=== PATIENT | female | born 1945 | race Caucasian/White ===

== ENCOUNTER → 2019-09-21 13:14 | Outpatient (BNVA) | payer MEDICARE, OTHER, SELFPAY | PROVIDERS: PCP Nurse Practitioner Family; Visit Provider Nurse Practitioner Family | DX: E55.9 Vitamin D deficiency, unspecified (principal); I10 Essential (primary) hypertension; L03.116 Cellulitis of left lower limb; L03.115 Cellulitis of right lower limb; E78.00 Pure hypercholesterolemia, unspecified; F32.9 Major depressive disorder, single episode, unspecified; J43.2 Centrilobular emphysema; F41.9 Anxiety disorder, unspecified; L25.9 Unspecified contact dermatitis, unspecified cause; Z99.81 Dependence on supplemental oxygen; Z86.19 Personal history of other infectious and parasitic diseases | CPT/HCPCS: 80053; 80061; 82306; 84443; 85025 ==

== ENCOUNTER → 2020-09-13 14:58 | Outpatient (BNVA) | payer MEDICARE, OTHER, SELFPAY | PROVIDERS: PCP Nurse Practitioner Family; Visit Provider Nurse Practitioner Family | DX: I10 Essential (primary) hypertension (principal); J43.2 Centrilobular emphysema; E78.00 Pure hypercholesterolemia, unspecified; F32.9 Major depressive disorder, single episode, unspecified | CPT/HCPCS: 80053; 80061; 84443; 85025 ==

== ENCOUNTER → 2021-03-01 16:35 | Outpatient (BNVA) | payer MEDICARE, OTHER, SELFPAY | PROVIDERS: PCP Nurse Practitioner Family; Visit Provider Nurse Practitioner Family | DX: R05.9 Cough, unspecified (principal); R06.02 Shortness of breath; J43.9 Emphysema, unspecified; J40 Bronchitis, not specified as acute or chronic | CPT/HCPCS: 71046; 80053 ==

== ENCOUNTER → 2021-03-05 13:29 | Outpatient (BNVA) | payer MEDICARE, OTHER, SELFPAY | PROVIDERS: PCP Nurse Practitioner Family; Visit Provider Nurse Practitioner Family | DX: R05.9 Cough, unspecified (principal); J84.115 Respiratory bronchiolitis interstitial lung disease; R06.02 Shortness of breath | CPT/HCPCS: 71046 ==

== ENCOUNTER → 2021-03-06 13:29 | Outpatient (BNVA) | payer MEDICARE, OTHER, SELFPAY | PROVIDERS: PCP Nurse Practitioner Family; Visit Provider Nurse Practitioner Family | DX: Z11.52 Encounter for screening for COVID-19 (principal) | CPT/HCPCS: 87635 ==

== ENCOUNTER 2021-03-19 13:55 | Inpatient (IN) | payer MEDICARE, OTHER, SELFPAY ==
[2021-03-19 14:04] VITALS: BP 134/55; PULSE 90; RESP 19; TEMP 37; O2SAT 98; BMI 22.3
[2021-03-19 14:07] VITALS: BP 150/83; PULSE 99; RESP 18; TEMP 36.8; O2SAT 95
--- NOTE | 2021-03-19 14:18 | XRR_ITS ---
PROCEDURE INFORMATION: Exam: XR Chest Exam date and time: 03/19/2021 2:18 PM Age: 76 years old Clinical indication: Dyspnea TECHNIQUE: Imaging protocol: XR of the chest. Views: 1 view. COMPARISON: CR XR chest 2V* [id number] 03/05/2021 1:36 PM FINDINGS: Lungs: Ill-defined opacity in the right lung base. Hyperinflated lungs with diffuse coarsening of the lung parenchyma. Biapical scarring noted. Pleural spaces: Unremarkable. No pleural effusion. No pneumothorax. Heart/Mediastinum: Unremarkable. No cardiomegaly. Bones/joints: Unremarkable. XR/XR chest 1V portable [id number] IMPRESSION: Sequela of COPD. Ill-defined opacity in the right lung base suspicious for pneumonia.
--- NOTE | 2021-03-19 14:18 | CTR_ITS ---
PROCEDURE INFORMATION: Exam: CTA Chest With Contrast Exam date and time: 03/19/2021 2:18 PM Age: 76 years old Clinical indication: Shortness of breath; Additional info: Pe? TECHNIQUE: Imaging protocol: Computed tomographic angiography of the chest with contrast. 3D rendering (Not supervised by radiologist): MIP and/or 3D reconstructed images were created by the technologist. Total images: [id number] Radiation optimization: All CT scans at this facility use at least one of these dose optimization techniques: automated exposure control; mA and/or kV adjustment per patient size (includes targeted exams where dose is matched to clinical indication); or iterative reconstruction. Contrast material: OMNI 350; Contrast volume: 95 ml; Contrast route: INTRAVENOUS (IV); COMPARISON: CT chest w con* [id number] 08/15/2015 2:00 PM RADIATION DOSE METRICS: Total DLP (mGy-cm): 432.82 FINDINGS: Pulmonary arteries: No visible evidence of pulmonary embolism/pulmonary arterial thrombus. Aorta: The thoracic aorta is nonaneurysmal. No visible intimal flap or dissection. Moderately advanced arterial sclerotic disease. 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 Lungs: Advanced centrilobular and panlobular emphysema. Subsegmental mixed interstitial and consolidated alveolar airspace disease anterior segment right upper lobe consistent with right upper lobe pneumonitis/pneumonia. Pleural spaces: No pneumothorax. No pleural effusion. Heart: No cardiomegaly. Left ventricular prominence. No visible pericardial effusion. Advanced 3 vessel coronary artery disease. Lymph nodes: Few marginally prominent middle mediastinal and right hilar lymph nodes most likely reactive in nature. Few calcified complexes of antecedent granulomatous disease. Diaphragm: Large hiatal hernia. Bones/joints: No visible acute osseous abnormality. Age-appropriate degenerative disease of the spine. Soft tissues: Unremarkable. Other findings: Respiratory motion artifact. CT/CT angio chest PE protcl [id number] IMPRESSION: 1. No visible evidence of pulmonary embolism/pulmonary arterial thrombus. For age 2. Subsegmental mixed interstitial and consolidated alveolar airspace disease anterior segment right upper lobe consistent with right upper lobe pneumonitis/pneumonia. 3. Advanced centrilobular and panlobular emphysema. 4. Advanced 3 vessel coronary artery disease. 5. Few marginally prominent middle mediastinal and right hilar lymph nodes most likely reactive in nature. 6. 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
--- NOTE | 2021-03-19 14:19 | ECG_ITS ---
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 Measurements Intervals [place] Rate: 87 P: 67 AR: 176 QRS: 42 QRSD: 62 T: 67 QT: 259 QTc: 312 Interpretive Statements SINUS RHYTHM NONSPECIFIC ST & T-WAVE ABNORMALITY Compared to ECG 08/28/2014 13:40:29 Sinus tachycardia no longer present T-wave abnormality still present Electronically Signed On 03-19-2021 20:53:38 SR. MERCHANDISE PLANNER by Roopa Mcclain M.D. [id number]
--- NOTE | 2021-03-19 14:55 | W.ED.GENADLT ---
HPI - General Adult General: Chief complaint: Shortness of Breath/Dyspnea Stated complaint: SEPSIS PNEUMONIA X 3 WEEKS Time Seen by Provider: 03/19/21 14:17 History of Present Illness: HPI narrative: Patient is a 76-year-old female with a history of COPD on 3L of oxygen at home, allergies to emergency room with complaints of cough and shortness of breath x3 weeks now with fever x1 day. Patient tells me that for the last week she has been dealing with pneumonia. Patient went to see her primary care provider on 2 occasion was prescribed cefdinir and then levofloxacin. Patient tells me that she finished levofloxacin 5 days ago and has had symptom improvement up until 2 days when she became short of breath and resumed coughing. Today, patient had a low-grade fever 99.5. Patient had 1 negative covid test from PCP office. Has any active chest pain, lightheadedness, abdominal complaints, nausea/vomiting, back pain, short pain, or any complaints or new vaginal complaints. Patient denies any increased oxygen requirement. Denies any leg swelling, pleuritic chest pain or hx of VTEs in the past. Onset: 3 weeks ago chronically, acutely 2 days Duration:ongoing Location:home Severity:moderate Review of Systems Narrative: Constitutional: +fever, +chills. HEENT: No vision changes CV: No chest pain, no palpitations PULM: +cough, +dyspnea. GI: No abdominal pain, no N/V/D. : No dysuria MSKEL: No muscle pain SKIN: No new rashes, no lesions. NEURO: No headache, no focal weakness. HEME: No visible bruises PSYCH: Normal mood PFSH ED PFSH: Medical History (Updated 03/19/21 @ 15:47 by Prabhjot Zuniga MD) Age related osteoporosis Anemia Anxiety Arteriosclerotic heart disease (ASHD) Bruit of right carotid artery Centrilobular emphysema SpO2 96% at rest on room air, drops to 84% with activity, 93% on 2L Compression of trachea Depression Essential (primary) hypertension Hypercholesterolemia Lung nodule, multiple On home oxygen therapy PAD (peripheral artery disease) Unspecified hearing loss, unspecified ear Vitamin D deficiency Surgical History History of bilateral carpal tunnel release Hx of appendectomy Hx of cholecystectomy Hx of spinal fusion Family History Father , AGE 39 Family history of premature coronary artery disease Myocardial infarction Other CAD (coronary artery disease) Social History Smoking and tobacco status: never smoked Quit status (tobacco): has quit using tobacco Year quit tobacco: 2010 Former quit date comment: PPD since age 14 Second hand smoke exposure: No Alcohol intake: current Alcohol intake frequency: 0-2 Drinks per Day Lives independently: Yes Household members: none Marital status: / Current occupational status: retired History of recent travel: No Current gender identity: Female Physical Exam Narrative: EXAM NARRATIVE: Head: Atraumatic Eyes: PERRL, conjunctiva without injection ENT: Mucous membrane moist NECK: Supple, ROM intact LUNGS: LCTAB, no crackles/rhonchi CV: RRR ABDOMEN: Soft, nontender in all quadrants EXTREMITY: Normal ROM SKIN: No rash or erythema NEURO: Awake and alert, no focal motor deficits PSYCH: Normal mood and affect Course Vital Signs: Vital signs: Vital Signs Temperature 98.6 F 03/19/21 14:04 Pulse Rate 90 03/19/21 14:04 Respiratory Rate 19 H 03/19/21 14:04 Blood Pressure 134/55 03/19/21 14:04 Pulse Oximetry 98 03/19/21 14:04 MDM - General Adult MDM Narrative: Medical decision making narrative: 76-year-old female with history of COPD, chronic allergies presenting to emergency room with cough, dyspnea, and fever x1 day. Patient is hemodynamically stable satting at 95% on 3 L of oxygen. Patient is noted to have coarse breath sounds in the right lung. X-ray chest showed right lower lobe dilatation concerning for possible pneumonia. Given the fact the patient has failed multiple outpatient treatments, patient was made to admit patient for IV antibiotics. Patient has a white count 15.7, pro-Randy elevated. Will be admitted for pneumonia. S/p vancomycin and cefepime. Disposition: Admission Lab Data: Labs: Lab Results 03/19/21 03/19/21 03/19/21 14:50 14:50 14:50 WBC 15.7 10^3/uL H 10 ^3/uL (4.0-10.0) RBC 4.29 10^6/uL 10^6 /uL (4.1-5.3) Hgb 11.5 g/dL g/dL (11.5-15.3) Hct 35.6 % L % (37.0-47.0) MCV 83.0 fl fl (81-99) MCH 26.8 pg L pg (28.0-34.0) MCHC 32.3 g/dL g/dL (30.0-36.0) RDW 15.0 % % (12.1-15.1) Plt Count 177 10^3/cmm 10^3 /cmm (130-400) MPV 9.7 fL fL (7.4-10.4) Neut % (Auto) 91.4 % % Lymph % (Auto) 2.4 % % Rich % (Auto) 4.7 % % Eos % (Auto) 0.6 % % Baso % (Auto) 0.3 % % Neut # (Auto) 14.36 10^3/uL H 1 0^3/uL (1.8-7.7) Lymph # (Auto) 0.4 10^3/uL L 10^ 3/uL (0.8-4.8) Rich # (Auto) 0.7 10^3/uL 10^3/ uL (0.2-0.9) Eos # (Auto) 0.1 10^3/uL 10^3/ uL (0.0-0.8) Baso # (Auto) 0.1 10^3/uL 10^3/ uL (0.0-0.1) Nucleated RBC % (a uto) 0 % % Nucleated RBCs # 0.0 /100WBC /100W BC Sodium 136 mmol/L mmol/L (136-145) Potassium 3.3 mmol/L L mmol /L (3.5-5.1) Chloride 101 mmol/L mmol/L (98-107) Carbon Dioxide 23 mmol/L mmol/L (22-29) Anion Gap 15.3 (5-19) BUN 13 mg/dL mg/dL (8-23) Creatinine 0.7 mg/dL mg/dL (0.5-0.9) GFR Calculation Not Reportable Glucose 105 mg/dL mg/dL (65-115) Calculated Osmolal ity 282 mOsm/kg L mOs m/kg (285-295) Calcium 8.1 mg/dL L mg/dL (8.5-10.5) Troponin T Baselin e 10 ng/L ng/L (0-10) C-Reactive Protein 17.0 mg/L H mg/L (0.0-4.9) NT-Pro-B Natriuret Pep 275 pg/mL pg/mL (0-450) Procalcitonin 1.51 ng/mL H ng/m L (0-0.5) Imaging Data^: Other Imaging: Radiologist's impression: [facility], [place] [address]TEfu ReportSigned Patient: Sangeeta Graham #: [id number]: 1945cct#:[id number]/Sex: 76 / FADM Date: 03/19/21Loc: ERRoom/Bed:Attending Dr: Ordering Provider/Ordering MD: Prabhjot Zuniga MD Date of Service: 03/19/21 Procedure(s): XR chest 1V portable [id number] Accession Number(s): [id number] Report Number: [id number] PROCEDURE INFORMATION: Exam: XR Chest Exam date and time: 03/19/2021 2:18 PM Age: 76 years old Clinical indication: Dyspnea TECHNIQUE: Imaging protocol: XR of the chest. Views: 1 view. COMPARISON: CR XR chest 2V* [id number] 03/05/2021 1:36 PM FINDINGS: Lungs: Ill-defined opacity in the right lung base. Hyperinflated lungs with diffuse coarsening of the lung parenchyma. Biapical scarring noted. Pleural spaces: Unremarkable. No pleural effusion. No pneumothorax. Heart/Mediastinum: Unremarkable. No cardiomegaly. Bones/joints: Unremarkable. XR/XR chest 1V portable [id number] IMPRESSION: Sequela of COPD. Ill-defined opacity in the right lung base suspicious for pneumonia. Dictated By:Eduardo Vargas DOSigned By:Eduardo Vargas DOSigned Date/Time:03/19/21 1522DD/ 1418 [facility] [place], [place] [address]RQ Scan ReportSigned Patient: Sangeeta Graham #: [id number]: 1945cct#:[id number]/Sex: 76 / FADM Date: 03/19/21Loc: ERRoom/Bed:Attending Dr: Ordering Provider/Ordering MD: Prabhjot Zuniga MD Date of Service: 03/19/21 Procedure(s): CT angio chest PE protcl [id number] Accession Number(s): [id number] Report Number: [id number] PROCEDURE INFORMATION: Exam: CTA Chest With Contrast Exam date and time: 03/19/2021 2:18 PM Age: 76 years old Clinical indication: Shortness of breath; Additional info: Pe? TECHNIQUE: Imaging protocol: Computed tomographic angiography of the chest with contrast. 3D rendering (Not supervised by radiologist): MIP and/or 3D reconstructed images were created by the technologist. Total images: 799 Radiation optimization: All CT scans at this facility use at least one of these dose optimization techniques: automated exposure control; mA and/or kV adjustment per patient size (includes targeted exams where dose is matched to clinical indication); or iterative reconstruction. Contrast material: OMNI 350; Contrast volume: 95 ml; Contrast route: INTRAVENOUS (IV); COMPARISON: CT chest w con* [id number] 08/15/2015 2:00 PM RADIATION DOSE METRICS: Total DLP (mGy-cm): 432.82 FINDINGS: Pulmonary arteries: No visible evidence of pulmonary embolism/pulmonary arterial thrombus. Aorta: The thoracic aorta is nonaneurysmal. No visible intimal flap or dissection. Moderately advanced arterial sclerotic disease. 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 Lungs: Advanced centrilobular and panlobular emphysema. Subsegmental mixed interstitial and consolidated alveolar airspace disease anterior segment right upper lobe consistent with right upper lobe pneumonitis/pneumonia. Pleural spaces: No pneumothorax. No pleural effusion. Heart: No cardiomegaly. Left ventricular prominence. No visible pericardial effusion. Advanced 3 vessel coronary artery disease. Lymph nodes: Few marginally prominent middle mediastinal and right hilar lymph nodes most likely reactive in nature. Few calcified complexes of antecedent granulomatous disease. Diaphragm: Large hiatal hernia. Bones/joints: No visible acute osseous abnormality. Age-appropriate degenerative disease of the spine. Soft tissues: Unremarkable. Other findings: Respiratory motion artifact. CT/CT angio chest PE protcl [id number] IMPRESSION: 1. No visible evidence of pulmonary embolism/pulmonary arterial thrombus. For age 2. Subsegmental mixed interstitial and consolidated alveolar airspace disease anterior segment right upper lobe consistent with right upper lobe pneumonitis/pneumonia. 3. Advanced centrilobular and panlobular emphysema. 4. Advanced 3 vessel coronary artery disease. 5. Few marginally prominent middle mediastinal and right hilar lymph nodes most likely reactive in nature. 6. 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 Dictated By:Nancy Mccracken By:Nancy Mccracken Date/Time:03/19/21 1623DD/ 1418 Discharge Plan Discharge Patient Disposition: Admitted As Inpatient Clinical Impression: Cough, Dyspnea, Pneumonia Condition: Stable Coding Level of Care Code ED Pari Mutuel Ticket Cashier for Nitish Nelson
[2021-03-19 15:09] LABS: Basophils # 0.1 10^3/uL (0.0-0.1); Basophils % 0.3 %; Eosinophils # 0.1 10^3/uL (0.0-0.8); Eosinophils % 0.6 %; Hematocrit 35.6 % (37.0-47.0); Hemoglobin 11.5 g/dL (11.5-15.3); Lymphocytes # 0.4 10^3/uL (0.8-4.8); Lymphocytes % 2.4 %; Mean Corpuscular HGB Conc 32.3 g/dL (30.0-36.0); Mean Corpuscular Hemoglobin 26.8 pg (28.0-34.0); Mean Platelet Volume 9.7 fL (7.4-10.4); Monocytes # 0.7 10^3/uL (0.2-0.9); Monocytes % 4.7 %; Neutrophils # 14.36 10^3/uL (1.8-7.7); Neutrophils % 91.4 %; Nucleated Red Blood Cells % 0 %; Platelet Count 177 10^3/cmm (130-400); Red Blood Count 4.29 10^6/uL (4.1-5.3); White Blood Count 15.7 10^3/uL (4.0-10.0)
[2021-03-19 15:26] LABS: Troponin(5th) Baseline 10 ng/L (0-10)
[2021-03-19 15:30] LABS: NT Pro B Type Natriuretic Pept 275 pg/mL (0-450); Procalcitonin 1.51 ng/mL (0-0.5)
[2021-03-19] MEDS: iohexol 350 mg/mL 100 mL Btl IV (15:30)
[2021-03-19 15:41] LABS: Anion Gap 15.3 (5-19); Blood Urea Nitrogen 13 mg/dL (8-23); Calcium 8.1 mg/dL (8.5-10.5); Carbon Dioxide 23 mmol/L (22-29); Chloride 101 mmol/L (98-107); Glucose 105 mg/dL (65-115); Osmolality Calculated 282 mOsm/kg (285-295); Potassium 3.3 mmol/L (3.5-5.1); Sodium 136 mmol/L (136-145)
[2021-03-19 16:40] VITALS: BP 150/83; PULSE 99; RESP 18; TEMP 36.8; O2SAT 95; BMI 20.5
[2021-03-19 17:24] LABS: Troponin 5 2HR 9.22 ng/L (0-10)
[2021-03-19 17:27] LABS: Troponin 5 2HR Delta -0.78 ABS# (0-10)
[2021-03-19 17:30] VITALS: BP 123/60; PULSE 75; RESP 16; O2SAT 99
[2021-03-19] MEDS: cefepime 1,000 MG in sodium chloride 0.9% (plus) 50 ML 100 MG IV (17:30)
[2021-03-19] MEDS: vancomycin 1,000 MG in sodium chloride 0.9% 250 ML 250 MG IV (18:09)
--- NOTE | 2021-03-19 18:18 | P.HP_ITS ---
Providers/Chief Complaint Primary Care Provider: GABBY Staples Chief Complaint: SEPSIS PNEUMONIA X 3 WEEKS History of Present Illness Sangeeta Graham is a 76 year old female with past medical history of COPD (on home oxygen but patient states she has been only using it for the last 3 weeks), anxiety, hypercholesterolemia, multiple lung nodules, hypertension, centrilobular emphysema presents to the hospital with complaint of worsening shortness of breath. She states she was diagnosed with right upper lobe pneumonia 2 weeks ago which was diagnosed via x-ray. She was placed on cefdinir and was not getting better and was later given on Levaquin and was not getting better. This morning she had a fever as well and she ended up coming to the hospital. She is accompanied by her daughter. She does use inhalers at home. Denies chest pain, abdominal pain, diarrhea, nausea, vomiting, constipation she does state that she has been having a bad cough. She is also bringing up sputum but are not sure what color. She continues to cough and is not getting better. Denies having any blood clots in the past. When I saw patient in the room she was getting hypoxic 8384% on 3 L. I bumped up to 5 L and now she was saturating 9192%. Patient was seen while eating [employer]. There was no acute distress or conversational dyspnea. Patient did continue to cough during my encounter with her. At length discussion was done with the patient regarding CODE STATUS and she would like to be a full code. Daughter in agreement. ED course: Blood pressure 134/55, respiratory rate 19, pulse rate 90, 98.6 temperature, pulse ox 98% on [address] chest was done which rule out PE but patient does have evidence of right upper lobe pneumonia. She has failed outpatient treatment and was being admitted for IV antibiotics. White count 15.7, procalcitonin elevated. Covid test pending. She was given 1 dose of vancomycin and cefepime. Review of Systems General: Reports: 10 or more systems reviewed and unremarkable except in HPI and below Medications/Allergies Home Medications Medication Instructions Recorded Confirmed Last Taken Type acyclovir 400 mg tablet 200 mg PO TID PRN tab 03/16/19 03/19/21 Unknown History budesonide 0.25 mg/2 mL suspension 2 ml INHALATION BID 03/16/19 03/19/21 Unknown History for nebulization magnesium oxide 400 mg PO QAM cap 03/16/19 03/19/21 03/19/21 History Nebulizer machine #1 ea 06/15/20 03/19/21 Unknown Rx ipratropium 20 mcg-albuterol 100 1 puff INHALATION QID #4 gm 09/13/20 03/19/21 Unknown Rx mcg/actuation mist for inhalation cilostazol 100 mg tablet 100 mg PO BID 180 Days #360 tab 11/24/20 03/19/21 03/19/21 03:00 Rx levofloxacin 500 mg tablet 500 mg PO DAILY 7 Days #7 tab 03/13/21 03/19/21 03/18/21 Rx LAST DOSE Mucinex 600 mg PO Q12H PRN 03/19/21 03/19/21 Unknown History Zoloft 50 mg PO QAM 03/19/21 03/19/21 03/19/21 History Zyrtec 10 mg PO DAILY PRN 03/19/21 03/19/21 Unknown History acetaminophen [Tylenol Ex Str 500 - 1,000 mg PO Q4H PRN 03/19/21 03/19/21 03/19/21 12:00 History Rapid Release] 1000 MG aspirin 325 mg PO Q6H PRN 03/19/21 03/19/21 Unknown History atorvastatin 20 mg PO QAM 03/19/21 03/19/21 03/19/21 History fluticasone propionate 2 spray INTRANASAL DAILY PRN 03/19/21 03/19/21 Unknown History hydrochlorothiazide 12.5 mg PO DAILY 03/19/21 03/19/21 Unknown History losartan 50 mg PO QAM 03/19/21 03/19/21 03/19/21 History montelukast 10 mg PO BEDTIME 03/19/21 03/19/21 03/18/21 History Allergies Allergy/AdvReac Type Severity Reaction Status Date / Time Sulfa (Sulfonamide Allergy Unknown Unknown Verified 03/05/21 13:59 Antibiotics) PFSH Acute PFSH: Medical History (Updated 03/20/21 @ 08:33 by Angela Nielson MD) Age related osteoporosis Anemia Anxiety Arteriosclerotic heart disease (ASHD) Bruit of right carotid artery Centrilobular emphysema SpO2 96% at rest on room air, drops to 84% with activity, 93% on 2L Compression of trachea Depression Essential (primary) hypertension Hypercholesterolemia Lung nodule, multiple On home oxygen therapy PAD (peripheral artery disease) Unspecified hearing loss, unspecified ear Vitamin D deficiency Surgical History History of bilateral carpal tunnel release Hx of appendectomy Hx of cholecystectomy Hx of spinal fusion Family History Father , AGE 39 Family history of premature coronary artery disease Myocardial infarction Other CAD (coronary artery disease) Social History Smoking and tobacco status: never smoked Quit status (tobacco): has quit using tobacco Year quit tobacco: 2010 Former quit date comment: PPD since age 14 Second hand smoke exposure: No Alcohol intake: current Alcohol intake frequency: 0-2 Drinks per Day Lives independently: Yes Household members: none Marital status: / Current occupational status: retired History of recent travel: No Current gender identity: Female Vitals/I&O/Wt Last Vital Signs Temp 98.2 F 03/19/21 16:40 Pulse 99 03/19/21 16:40 Resp 18 03/19/21 16:40 BP 150/83 03/19/21 16:40 Pulse Ox 95 03/19/21 16:40 03/19/21 03/19/21 03/19/21 06:59 14:59 22:59 Intake Total 50 / 50 Balance 50 / 50 Weight last 48 hrs Weight 54.431 kg Weight 55.338 kg Physical Exam Narrative: EXAM NARRATIVE: General: Alert oriented x3, patient seen sitting up in bed appearing comfortable on 3 L nasal cannula. Frail-appearing female cachectic. No conversational dyspnea, no acute respiratory distress but does desaturate down to low 80s on 3 L nasal cannula. HEENT: Normocephalic, atraumatic, EOMI, breathing 3 L which was later escalated to 5 L nasal cannula by ms Cardio: Regular rate rhythm, normal S1-S2, no murmurs rubs gallops, Respiratory: Gross rhonchi present bilaterally throughout all lung rm, breath sounds slightly diminished. Sounds very congested. GI: Abdomen soft, nontender, nondistended, bowel sounds + Behavior: Appropriate and cooperative Extremities: no edema, no cyanosis Data : 03/20/21 05:40 03/20/21 05:40 Micro: Microbiology 03/19/21 14:50 Blood Culture - Preliminary Blood SPECIMEN COLLECTED 03/19/21 14:50 Blood Culture - Preliminary Blood SPECIMEN COLLECTED A&P Assessment and plan (1) Community acquired pneumonia: Status: Acute (2) Right upper lobe pneumonia: Status: Acute (3) Centrilobular emphysema: Status: Acute (4) On home oxygen therapy: Status: Acute (5) Essential (primary) hypertension: Status: Acute (6) Hypercholesterolemia: Status: Acute Additional A&P Information #Community-acquired pneumonia and right upper lobe #History of centrilobular emphysema on 2 L nasal cannula at home [id number]. #Hypertension #Hypercholesterolemia ?Patient recently was being treated for pneumonia since last 2 weeks and failed outpatient antibiotic treatment. She was admitted for IV antibiotics. ?We will place on DuoNeb every 4 hours ?Continue inhaled budesonide twice daily ?Continue Vanco and cefepime and de-escalate therapy pending clinical course ?Check MRSA nares PCR, Covid test, influenza, bacterial antigens strep and Legionella, check sputum Gram stain culture and blood cultures ?We will hold off on systemic steroids for now and use inhaled. May add steroids tomorrow depending on how patient does. ?Manage oxygen as required. ?Continue home medications -Add flutter valve. Full code DVT prophylaxis Lovenox Attestations Medical Necessity Statement*: Patient will cross 48-hour stay in the hospital for continued management of pneumonia/COPD. Coding Level of Care Code Acute Tinning Machine Set Up Operator for Nitish Nelson Diagnoses Community acquired pneumonia J18.9 Right upper lobe pneumonia J18.9 Centrilobular emphysema J43.2 On home oxygen therapy Z99.81 Essential (primary) hypertension I10 Hypercholesterolemia E78.00
[2021-03-19 19:14] LABS: Adenovirus Not Detected (NOT DETECT); Chlamydia Pneumoniae Not Detected (NOT DETECT); Coronavirus 229E,HKU1,NL63,OC4 Not Detected (NOT DETECT); Human Metapneumovirus Not Detected (NOT DETECT); Human Rhinovirus/Enterovirus Detected (NOT DETECT); Influenza A Not Detected (NOT DETECT); Influenza A H1 Not Detected (NOT DETECT); Influenza A H1-2009 Not Detected (NOT DETECT); Influenza A H3 Not Detected (NOT DETECT); Influenza B Not Detected (NOT DETECT); Mycoplasma Pneumoniae Not Detected (NOT DETECT); Parainfluenza Virus Type 1 Not Detected (NOT DETECT); Parainfluenza Virus Type 2 Not Detected (NOT DETECT); Parainfluenza Virus Type 3 Not Detected (NOT DETECT); Parainfluenza Virus Type 4 Not Detected (NOT DETECT); Respiratory Syncytial Virus A Not Detected (NOT DETECT); Respiratory Syncytial Virus B Not Detected (NOT DETECT); SARS-COV-2 Not Detected (NOT DETECT)
[2021-03-19 19:18] LABS: Human Metapneumovirus Not Detected (NOT DETECT); Human Rhinovirus/Enterovirus Detected (NOT DETECT); Results from Genmark
[2021-03-19 19:20] VITALS: PULSE 80; RESP 18; O2SAT 98
[2021-03-19] MEDS: ipratropium-albuterol 3 mL Neb INHALATION (19:20)
[2021-03-20] VITALS (22 sets, daily range): BP systolic 132–173; BP diastolic 57–73; PULSE 68–88; RESP 14–22; TEMP 36.7–37.2; O2SAT 93–100
[2021-03-20] MEDS: ipratropium-albuterol 3 mL Neb INHALATION ×6 (00:10→23:47)
--- NOTE | 2021-03-20 01:14 | PC.PHAR ---
Vancomycin is dosed at 1gm IVPB every 24 hours to produce a predicted trough level of 11.29 (population based pharmacokinetic analysis). A trough level has been ordered from the lab to be obtained before the fourth dose to confirm and adjust if needed.
[2021-03-20] MEDS: montelukast sodium 10 mg Tablet PO ×2 (02:05→20:40)
[2021-03-20 06:15] LABS: Basophils % 0.3 %; Eosinophils # 0.1 10^3/uL (0.0-0.8); Eosinophils % 0.6 %; Hematocrit 32.2 % (37.0-47.0); Hemoglobin 10.4 g/dL (11.5-15.3); Lymphocytes # 0.7 10^3/uL (0.8-4.8); Lymphocytes % 6.6 %; Mean Corpuscular HGB Conc 32.3 g/dL (30.0-36.0); Mean Corpuscular Hemoglobin 26.9 pg (28.0-34.0); Mean Corpuscular Volume 83.2 fl (81-99); Mean Platelet Volume 9.6 fL (7.4-10.4); Monocytes # 0.5 10^3/uL (0.2-0.9); Monocytes % 5.3 %; Neutrophils # 8.93 10^3/uL (1.8-7.7); Neutrophils % 86.8 %; Nucleated Red Blood Cells % 0 %; Platelet Count 156 10^3/cmm (130-400); Red Blood Count 3.87 10^6/uL (4.1-5.3); Red Cell Distribution Width 14.9 % (12.1-15.1); White Blood Count 10.3 10^3/uL (4.0-10.0)
[2021-03-20 06:32] LABS: Lactic Sepsis W/Reflex 0.7 mmol/L (0.5-2.2)
[2021-03-20 06:33] LABS: Alanine Aminotransferase < 5 U/L (0-33); Albumin Level 3.2 g/dL (3.5-5.2); Alkaline Phosphatase 86 IU/L (35-105); Anion Gap 12.6 (5-19); Aspartate Amino Transferase 11 U/L (0-32); Blood Urea Nitrogen 11 mg/dL (8-23); Calcium 7.8 mg/dL (8.5-10.5); Carbon Dioxide 24 mmol/L (22-29); Chloride 103 mmol/L (98-107); Globulin 2.4 g/dL (1.3-4.6); Glucose 86 mg/dL (65-115); Osmolality Calculated 281 mOsm/kg (285-295); Potassium 3.6 mmol/L (3.5-5.1); Sodium 136 mmol/L (136-145); Total Bilirubin 0.5 mg/dL (0.15-1.2); Total Protein 5.6 g/dL (6.6-8.7)
[2021-03-20] MEDS: sertraline 100 mg Tablet 50 MG PO (06:56)
[2021-03-20] MEDS: atorvastatin 40 mg Tablet 20 MG PO (06:57)
[2021-03-20] MEDS: losartan 50 mg Tablet PO (06:57)
--- NOTE | 2021-03-20 08:08 | PC.NURSE ---
Floor called, report given to SACHA Ken
--- NOTE | 2021-03-20 08:49 | PC.NURSE ---
Patient was given Oxygen when she had her Heartatack 2016. Uses 3L when needed to take shower and such. O2 is from [facility]
--- NOTE | 2021-03-20 08:55 | PC.NURSE ---
Patient had Moderna Booster on 01/11/2021
[2021-03-20] MEDS: hydroCHLOROthiazide 25 mg Tablet 12.5 MG PO (09:24)
[2021-03-20] MEDS: cilostazol 100 mg Tablet PO ×2 (09:24→18:09)
[2021-03-20] MEDS: cefepime 1,000 MG in sodium chloride 0.9% (plus) 50 ML 100 MG IV ×2 (09:24→16:28)
[2021-03-20] MEDS: enoxaparin 40 mg/0.4 mL Syringe SUBCUT (09:25)
--- NOTE | 2021-03-20 09:33 | PC.NURSE ---
patient's vancomycin was ordered to start at 0200 on 03-20-21. patient was in ER and medication was not given. telegraphic typewriter mechanic called pharmacy and spoke with Abisai. He said ER nurse nonadministered medication with reason OD. Abisai said he will change time to start medication. Cook Apprentice notified Dr Nielson.
--- NOTE | 2021-03-20 10:09 | PC.CHAP ---
Pastoral Care Encounter/Spiritual Assessment Type of Contact [] Declined curb attendant visit [] Patient/Family/Request visit [] Outpatient visit [] Follow-up visit [] Physician referral [] Code/Alert [x] Routine visit [] Staff referral [] Actively dying [] Patient sleeping [] Family support [] [] Out of room [] Palliative care [] [] Receiving care in room [] Pre-surgical visit [] Trauma [] Long length of stay [] ICU visit [] Other: Relational/Emotional Strength [x] Patient feels connected with others/family/visitors/staff [] Distress [] Loneliness/isolation [] Abandonment Spirituality of Patient [x] Person of Fatuma [] Attends Cheondoism of their Fatuma [] Believes in Prayer [] Reads Bible or Hoahaoism materials [] There are Spiritual issues to be addressed Environmental Protection Forester Interventions [x] Prayer [x] Active listening [x] Non-anxious presence [x] Spiritual/emotional support [] Crisis/trauma care [] Spiritual counseling [] Bereavement support [] Provided bereavement packet [] Provided Bible/devotional materials [] Provided toy/stuffed animal, coloring book to patient or family member [] Provided Communion [] Anointing/[place] [] Salvation [x] Completed spiritual assessment [] Other: Impact on Illness or Injury [] Angry [] Fearful [] Anxious [] Often cries [] Exhaustion [] Unable to work [] Unable to attend anabaptist [] Unable to walk/stand [] Unable to read [] Unable to drive [] Unable to eat/drink [] Unable to sleep [] Unable to be with family [] Patient intubated [] Other: Summary Pt has just gotten into room from being in ER since yesterday afternoon. Glad to finally be settled somewhere after 20 hrs of waiting. A woman was in the room also and Pt introduced her as a friend of the family. Pt has had pneumonia for a number of weeks and is in hospital to receive IV antibiotics. Time spent with patient 15m
--- NOTE | 2021-03-20 12:36 | PM.PN ---
Subjective Subjective: Interval history: Seen this morning. Patient feels a lot better compared to yesterday when she first came in. She is down to 3 L on nasal cannula. 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 She does take her inhalers at home. Her cough is also improved. WBC count is down to 10,000. Vitals/I&O/Wt Last Vital Signs Temp 98.3 F 03/20/21 11:40 Pulse 82 03/20/21 11:40 Resp 17 03/20/21 11:40 BP 144/67 03/20/21 11:40 Pulse Ox 99 03/20/21 11:40 03/19/21 03/20/21 03/20/21 22:59 06:59 14:59 Intake Total 300 / 300 Balance 300 / 300 Weight last 48 hrs Weight 54.431 kg Weight 55.338 kg Physical Exam Narrative: EXAM NARRATIVE: General: Alert oriented x3, patient seen sitting up in bed appearing comfortable on 3 L nasal cannula. Frail-appearing female cachectic. No conversational dyspnea, no acute respiratory distress HEENT: Normocephalic, atraumatic, EOMI, breathing 3 L Cardio: Regular rate rhythm, normal S1-S2, no murmurs rubs gallops, Respiratory: Chest clear to auscultation bilaterally no wheezes no rhonchi appreciated. Sounds a lot better compared to admission. GI: Abdomen soft, nontender, nondistended, bowel sounds + Behavior: Appropriate and cooperative Extremities: no edema, no cyanosis Data : 03/20/21 05:40 03/20/21 05:40 Micro: Microbiology 03/19/21 14:50 Blood Culture - Preliminary Blood SPECIMEN COLLECTED 03/19/21 14:50 Blood Culture - Preliminary Blood SPECIMEN COLLECTED A&P Assessment and plan (1) Community acquired pneumonia: Status: Acute (2) Right upper lobe pneumonia: Status: Acute (3) Centrilobular emphysema: Status: Acute (4) On home oxygen therapy: Status: Acute (5) Essential (primary) hypertension: Status: Acute (6) Hypercholesterolemia: Status: Acute Additional A&P Information #Community-acquired pneumonia and right upper lobe #History of centrilobular emphysema on 2 L nasal cannula at home [id number]. #Hypertension #Hypercholesterolemia ?Patient recently was being treated for pneumonia since last 2 weeks and failed outpatient antibiotic treatment. She was admitted for IV antibiotics. ?We will place on DuoNeb every 4 hours ?Continue inhaled budesonide twice daily ?Continue Vanco and cefepime for another day. We will switch to oral antibiotics tomorrow and possibly discharge patient pending clinical course. ?Check MRSA nares PCR, Covid test, influenza, bacterial antigens strep and Legionella, check sputum Gram stain culture and blood cultures. Blood cultures are negative to date. Rest of all tests are pending. She is positive for rhinovirus however. ?We will hold off on systemic steroids for now and use inhaled. ?Manage oxygen as required. ?Continue home medications -Add flutter valve. Full code DVT prophylaxis Lovenox Attestations Medical Necessity Statement*: Will require overnight stay today for monitoring and continued IV antibiotics. If she continues to do well I will discharge her tomorrow most likely. Coding Level of Care Code Acute Central Office Installer for [facility] Omar Diagnoses Community acquired pneumonia J18.9 Right upper lobe pneumonia J18.9 Centrilobular emphysema J43.2 On home oxygen therapy Z99.81 Essential (primary) hypertension I10 Hypercholesterolemia E78.00
[2021-03-20] MEDS: vancomycin 1,000 MG in sodium chloride 0.9% 250 ML 250 MG IV (18:09)
[2021-03-21] VITALS (10 sets, daily range): BP systolic 112–128; BP diastolic 51–63; PULSE 75–94; RESP 16–18; TEMP 36.5–36.7; O2SAT 95–99
[2021-03-21] MEDS: cefepime 1,000 MG in sodium chloride 0.9% (plus) 50 ML 100 MG IV ×2 (00:16→09:02)
[2021-03-21] MEDS: ipratropium-albuterol 3 mL Neb INHALATION ×2 (03:29→08:05)
[2021-03-21 06:09] LABS: Basophils % 0.3 %; Eosinophils # 0.1 10^3/uL (0.0-0.8); Eosinophils % 1.7 %; Hematocrit 31.1 % (37.0-47.0); Hemoglobin 9.9 g/dL (11.5-15.3); Lymphocytes # 0.6 10^3/uL (0.8-4.8); Lymphocytes % 9.6 %; Mean Corpuscular HGB Conc 31.8 g/dL (30.0-36.0); Mean Corpuscular Hemoglobin 26.9 pg (28.0-34.0); Mean Corpuscular Volume 84.5 fl (81-99); Mean Platelet Volume 10.1 fL (7.4-10.4); Monocytes # 0.4 10^3/uL (0.2-0.9); Monocytes % 6.1 %; Neutrophils # 5.35 10^3/uL (1.8-7.7); Nucleated Red Blood Cells % 0 %; Platelet Count 165 10^3/cmm (130-400); Red Blood Count 3.68 10^6/uL (4.1-5.3); Red Cell Distribution Width 14.8 % (12.1-15.1); White Blood Count 6.5 10^3/uL (4.0-10.0)
[2021-03-21] MEDS: sertraline 100 mg Tablet 50 MG PO (06:29)
[2021-03-21] MEDS: losartan 50 mg Tablet PO (06:29)
[2021-03-21 06:30] LABS: Anion Gap 14.3 (5-19); Blood Urea Nitrogen 10 mg/dL (8-23); Calcium 8.2 mg/dL (8.5-10.5); Carbon Dioxide 23 mmol/L (22-29); Chloride 102 mmol/L (98-107); Glucose 88 mg/dL (65-115); Osmolality Calculated 280 mOsm/kg (285-295); Potassium 3.3 mmol/L (3.5-5.1); Sodium 136 mmol/L (136-145)
[2021-03-21] MEDS: atorvastatin 40 mg Tablet 20 MG PO (06:30)
[2021-03-21] MEDS: cilostazol 100 mg Tablet PO (09:02)
[2021-03-21] MEDS: hydroCHLOROthiazide 25 mg Tablet 12.5 MG PO (09:02)
[2021-03-21] MEDS: fluticasone nasal spray 16gm Btl 2 SPRAY INTRANASAL (09:04)
[2021-03-21] MEDS: enoxaparin 40 mg/0.4 mL Syringe SUBCUT (09:22)
--- NOTE | 2021-03-21 10:29 | P.DS_ITS ---
Discharge Providers Date of Admission: 03/19/21 15:49 Date of Discharge: March 21, 2021 Attending Provider at Admission: Angela Nielson MD Attending Provider at Discharge: Angela Nielson MD Primary Care Provider: GABBY Staples Diagnoses at Discharge Discharge Diagnosis (1) Community acquired pneumonia: Status: Acute (2) Right upper lobe pneumonia: Status: Acute (3) Centrilobular emphysema: Status: Acute Permanent problem details: SpO2 96% at rest on room air, drops to 84% with activity, 93% on 2L (4) On home oxygen therapy: Status: Acute (5) Essential (primary) hypertension: Status: Acute (6) Hypercholesterolemia: Status: Acute Reason for Visit Reason for Visit: SEPSIS PNEUMONIA X 3 WEEKS Hospital Course Hospital Course Sangeeta Graham is a 76 year old female with past medical history of COPD (on home oxygen but patient states she has been only using it for the last 3 weeks), anxiety, hypercholesterolemia, multiple lung nodules, hypertension, centrilobular emphysema presents to the hospital with complaint of worsening shortness of breath. She states she was diagnosed with right upper lobe pneumonia 2 weeks ago which was diagnosed via x-ray. She was placed on cefdinir and was not getting better and was later given on Levaquin and was not getting better. This morning she had a fever as well and she ended up coming to the hospital. She is accompanied by her daughter. She does use inhalers at home. Denies chest pain, abdominal pain, diarrhea, nausea, vomiting, constipation she does state that she has been having a bad cough. She is also bringing up sputum but are not sure what color. She continues to cough and is not getting better. Denies having any blood clots in the past. When I saw patient in the room she was getting hypoxic 8384% on 3 L. I bumped up to 5 L and now she was saturating 9192%. Patient was seen while eating [employer]. There was no acute distress or conversational dyspnea. Patient did continue to cough during my encounter with her. At length discussion was done with the patient regarding CODE STATUS and she would like to be a full code. Daughter in agreement. ED course: Blood pressure 134/55, respiratory rate 19, pulse rate 90, 98.6 temperature, pulse ox 98% on [address] chest was done which rule out PE but patient does have evidence of right upper lobe pneumonia. She has failed outpatient treatment and was being admitted for IV antibiotics. White count 15.7, procalcitonin elevated. Covid test pending. She was given 1 dose of vancomycin and cefepime. Course: Patient recently was being treated for pneumonia since last 2 weeks and failed outpatient antibiotic treatment. She was admitted for IV antibiotics.She was given vanc and cefepime and eventually discharged on augmentin. She was given pulm f/u at discharge due to hx of centrilobular emphysema. 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 She was also advised to wear home oxygen around the clock. Daughter was updated at bedside in detial. Physical Exam Narrative: EXAM NARRATIVE: General: Alert oriented x3, patient seen sitting up in bed appearing comfortable on 2 L nasal cannula. Frail-appearing female cachectic. No conversational dyspnea, no acute respiratory distress HEENT: Normocephalic, atraumatic, EOMI, breathing 2 L Cardio: Regular rate rhythm, normal S1-S2, no murmurs rubs gallops, Respiratory: Chest clear to auscultation bilaterally no wheezes no rhonchi a ppreciated. GI: Abdomen soft, nontender, nondistended, bowel sounds + Behavior: Appropriate and cooperative Extremities: no edema, no cyanosis Discharge Data Data Completed and Pending: Completed Studies During Hospitalization Category Date Time Status CT angio chest PE protcl [id number] Urge nt Cat Scan 03/19/21 14:18 Completed XR chest 1V morenita ble [id number] Urgent Exams 03/19/21 14:18 Completed Pending at discharge Category Date Time Status Bacterial Antigen Stat Lab 03/19/21 18:18 Uncollected Blood Culture Sta t Lab 03/19/21 14:50 Results MRSA by PCR Stat Lab 03/20/21 21:26 Received Sputum Culture an d Gram Stain Stat Lab 03/20/21 Received Vancomycin Trough Timed Lab 03/21/21 17:00 Ordered Labs from last 24 hours 03/21/21 03/21/21 04:47 04:47 WBC 6.5 RBC 3.68 L Hgb 9.9 L Hct 31.1 L MCV 84.5 MCH 26.9 L MCHC 31.8 RDW 14.8 Plt Count 165 MPV 10.1 Neut % (Auto) 82.0 Lymph % (Auto) 9.6 [place] % (Auto) 6.1 Eos % (Auto) 1.7 Baso % (Auto) 0.3 Neut # (Auto) 5.35 Lymph # (Auto) 0.6 L [place] # (Auto) 0.4 Eos # (Auto) 0.1 Baso # (Auto) 0.0 Nucleated RBC % (a uto) 0 Nucleated RBCs # 0.0 Sodium 136 Potassium 3.3 L Chloride 102 Carbon Dioxide 23 Anion Gap 14.3 BUN 10 Creatinine 0.6 GFR Calculation Not Reportable Glucose 88 Calculated Osmolal ity 280 L Calcium 8.2 L Magnesium 2.0 Vitals: Last Vital Signs Temp 98.1 F 03/21/21 07:23 Pulse 79 03/21/21 08:00 Resp 16 03/21/21 08:00 BP 121/60 03/21/21 07:23 Pulse Ox 95 03/21/21 08:00 Discharge Plan Discharge Patient Disposition: Home Condition: Stable Prescriptions: New Augmentin 875-125 mg tablet 1 tab PO BID 10 Days Qty: 20 RF: 0 Continued acyclovir 400 mg tablet 200 mg PO TID PRN (Reason: BREAKOUTS) RF: 0 budesonide 0.25 mg/2 mL suspension for nebulization 2 ml INHALATION BID RF: 0 magnesium oxide 400 mg magnesium capsule 400 mg PO QAM RF: 0 Combivent Respimat 20-100 mcg/actuation mist 1 puff INHALATION QID Qty: 4 RF: 5 cilostazol 100 mg tablet 100 mg PO BID 180 Days Qty: 360 RF: 1 atorvastatin 40 mg tablet 20 mg PO QAM RF: 0 aspirin 325 mg Tablet 325 mg PO Q6H PRN (Reason: Headache) RF: 0 acetaminophen 500 mg Tablet 500 - 1,000 mg PO Q4H PRN (Reason: Pain) RF: 0 losartan 50 mg tablet 50 mg PO QAM RF: 0 Zyrtec 10 mg tablet 10 mg PO DAILY PRN (Reason: Allergy Symptoms) RF: 0 Zoloft 100 mg tablet 50 mg PO QAM RF: 0 montelukast 10 mg tablet 10 mg PO BEDTIME RF: 0 fluticasone propionate 50 mcg/actuation spray,suspension 2 spray INTRANASAL DAILY PRN (Reason: Allergy Symptoms) RF: 0 Mucinex 600 mg tablet extended release 12hr 600 mg PO Q12H PRN (Reason: Congestion) RF: 0 Discontinued levofloxacin 500 mg tablet 500 mg PO DAILY 7 Days Qty: 7 RF: 0 hydrochlorothiazide 12.5 mg tablet 12.5 mg PO DAILY RF: 0 No Action (DME) Nebulizer machine See Rx Instructions .Route .MEDSUPPLY Qty: 1 RF: 0 Discharge Orders: Discharge Order (Routine); Ordered 03/21/21 Ordered By: Angela Nielson Referrals: Isreal Smith MD [Physician] - 04/16/21 11:00 am (Centrilobular emphysema, recent CAP) Deloris Pat FNP [Primary Care Provider] - 03/28/21 11:20 am Discharge Diet: Usual diet Discharge Activity: Resume usual activity and Oxygen as instructed Patient Instructions: Amoxicillin/Clavulanate Potassium (By mouth), Pneumonia (DC), Opioid Safety, Pneumonia Stoplight Discharge Attestations Time Spent in Discharge Care*: less than 30 min Quality Metrics Clinical Quality Measures During this hospital stay, did patient experience: None Coding Level of Care Code Acute Chg FW DC note Diagnoses Community acquired pneumonia J18.9 Right upper lobe pneumonia J18.9 Centrilobular emphysema J43.2 On home oxygen therapy Z99.81 Essential (primary) hypertension I10 Hypercholesterolemia E78.00
--- NOTE | 2021-03-21 11:23 | PC.NURSE ---
Discussed discharge with patient and daughter. Discussed future appointments, new medications and ones to discontinue. Patient and daughter (Gabriella) verbalizes understanding.
--- NOTE | 2021-03-26 09:57 | PC.SOCIAL ---
Message left on this nurse phone by daughter indicating pt fever returns intermittently and asking about HH. Called daughter Janet back and advised to see if PCP appt can be moved up from 03/28/2021 to today or tomorrow. We discussed provider may want to switch or add abx if still having fever. Also she inquired about HH and this nurse updated Dr Nielson is off this week so when she sees PCP can ask for this as well. Recommend PT and nursing as daughter indicates yesterday she hasn't been up moving much and is feeling weaker. We discussed if she continues to worsen or cant be seem timely enough by PCP can return to ED. Recommend trying PCP first and daughter agrees.
== END 2021-03-21 12:30 | disposition home or self-care (01) | DRG 195 ==
LOC: ER 17:02 → ER IP 18:34 → MEDSURG 03-20 14:21
PROVIDERS: Admitting Provider Internal Medicine; Emergency Provider Emergency Medicine; PCP Nurse Practitioner Family; Visit Provider Internal Medicine
DX: J18.9 Pneumonia, unspecified organism (principal); Z99.81 Dependence on supplemental oxygen; M81.0 Age-related osteoporosis without current pathological fracture; D64.9 Anemia, unspecified; F41.1 Generalized anxiety disorder; I25.10 Atherosclerotic heart disease of native coronary artery without angina pectoris; J43.2 Centrilobular emphysema; F32.A Depression, unspecified; I10 Essential (primary) hypertension; E78.00 Pure hypercholesterolemia, unspecified; I73.9 Peripheral vascular disease, unspecified; E55.9 Vitamin D deficiency, unspecified; Z98.1 Arthrodesis status; Z87.891 Personal history of nicotine dependence; R91.8 Other nonspecific abnormal finding of lung field
CPT/HCPCS: 36415; 71045; 71275; 80048; 80053; 83605; 83735; 83880; 84145; 84484; 85025; 86140; 87040; 87070; 87205; 87449; 87635; 87641; 87801; 93005; 94640; 94664; 96372; 99291; J0692; J1650; J3370; J7050; Q9967

== ENCOUNTER → 2021-03-27 10:41 | Outpatient (BNVA) | payer MEDICARE, OTHER, SELFPAY | PROVIDERS: PCP Nurse Practitioner Family; Visit Provider Nurse Practitioner Family | DX: J18.9 Pneumonia, unspecified organism (principal); I10 Essential (primary) hypertension; Z86.19 Personal history of other infectious and parasitic diseases; F32.9 Major depressive disorder, single episode, unspecified; E55.9 Vitamin D deficiency, unspecified; E78.00 Pure hypercholesterolemia, unspecified; J44.0 Chronic obstructive pulmonary disease with (acute) lower respiratory infection | CPT/HCPCS: 71046; 80053; 80061; 81003; 82306; 84443; 85025 ==

== ENCOUNTER → 2021-03-30 11:40 | Outpatient (BNVA) | payer MEDICARE, OTHER, SELFPAY | PROVIDERS: PCP Nurse Practitioner Family; Visit Provider Nurse Practitioner Family | DX: R79.89 Other specified abnormal findings of blood chemistry (principal); R10.13 Epigastric pain | CPT/HCPCS: 80076; 86308; 86705; 86706; 86709; 86803; 87340 ==

== ENCOUNTER 2021-03-31 08:36 | Emergency (ER) | payer MEDICARE, OTHER, SELFPAY ==
[2021-03-31 08:41] VITALS: BP 137/69; PULSE 100; RESP 24; TEMP 36.9; O2SAT 97; BMI 19.7
--- NOTE | 2021-03-31 08:46 | USR_ITS ---
PROCEDURE INFORMATION: Exam: US Abdomen Complete Exam date and time: 03/31/2021 8:46 AM Age: 76 years old Clinical indication: Abnormal findings; Abnormal lab test; Elevated liver enzymes; Prior surgery; Surgery date: 6+ months; Surgery type: Cholecystectomy; Additional info: Elevated lft, jaundice TECHNIQUE: Imaging protocol: Real-time ultrasound of the abdomen with image documentation. Total images: 52 COMPARISON: CT angio chest PE protcl [id number] 03/19/2021 3:28 PM FINDINGS: Liver: The liver is normal in echogenicity and configuration. No masses are detected. There is no intrahepatic biliary dilatation. Gallbladder: Prior cholecystectomy noted. Common bile duct: Common bile duct diameter is 2 mm. Pancreas: The pancreas is partially visualized due to overlying bowel gas. No gross pathology is detected. Right kidney: 9.5 cm length of right kidney. Right kidney with normal echogenicity and no hydronephrosis, calculi, solid masses, nor perinephric fluid collection. Normal arborization of the vasculature of the right kidney by color Doppler. Left kidney: 8.5 cm length of left kidney. Left kidney with normal echogenicity and no hydronephrosis, calculi, solid masses, nor perinephric fluid collection. Spleen: 10.8 cm Splenic length. The spleen has a normal echogenicity and configuration. No masses are detected. Aorta: Infrarenal abdominal aortic aneurysm measured at 3.4 cm. Inferior vena cava: IVC unremarkable. Portal venous: Spectral sonography demonstrates patent portal vein with hepatopedal blood flow. Normal respiratory phasicity on spectral waveform, indicating preserved compliance of the liver. No portal venous abnormality identified. Other findings: Study limited due to bowel gas. US/US abdomen complete* [id number] IMPRESSION: 1. Infrarenal abdominal aortic aneurysm measured at 3.4 cm. Follow-up imaging in 3 years is recommended. 2. No acute process identified.
--- NOTE | 2021-03-31 09:07 | ED_ITS ---
HPI - Abdominal Pain General: Chief Complaint: Abdominal Pain Stated Complaint: Liver Enzimes are High Time Seen by Provider: 03/31/21 08:51 Source: patient and family Limitations: no limitations History of Present Illness: HPI narrative: 76-year-old female reported to the ER with complaints of elevated liver enzymes. Recently hospitalized for pneumonia, has been taking Augmentin without difficulty. Occasionally reports epigastric pain. Was previously instructed by primary care provider to avoid NSAIDs therefore she started taking Tylenol for her pain. Reports occasional headaches for which she would take an aspirin for pain. The aspirin was in addition to the Tylenol consumed. over the course of the last week patient admits to taking acetaminophen 500 mg if ineffective would repeat dose in an hour on multiple occasions. She stated that she took it when she felt like her pain was not controlled. During this time she was also taking Aspirin 325mg every 6 hours for Headaches. In addition to her routine medications it was discussed in great detail that easily taking this amount of acetaminophen, in addition to aspirin use could result in elevated liver enzymes. MD elicited complaint: abdominal pain (Epigastric) Pertinent past history: other (Recent hospitalization for pneumonia discharged March 21) Onset (ago): day(s) Pain Consistency: now resolved Location: Epigastric Severity: mild Migration to: no migration Relieving factors: medication (Tylenol) Related Data: Patient : No Review of Systems General: Reports: 10 or more systems reviewed and unremarkable except in HPI and below PFSH ED PFSH: Medical History (Updated 03/31/21 @ 10:30 by OTONIEL Beltran) Age related osteoporosis Anemia Anxiety Arteriosclerotic heart disease (ASHD) Bruit of right carotid artery Centrilobular emphysema SpO2 96% at rest on room air, drops to 84% with activity, 93% on 2L Compression of trachea Depression Essential (primary) hypertension Hypercholesterolemia Lung nodule, multiple On home oxygen therapy PAD (peripheral artery disease) Unspecified hearing loss, unspecified ear Vitamin D deficiency Surgical History History of bilateral carpal tunnel release Hx of appendectomy Hx of cholecystectomy Hx of spinal fusion Family History Father , AGE 39 Family history of premature coronary artery disease Myocardial infarction Other CAD (coronary artery disease) Social History Smoking and tobacco status: former smoker Quit status (tobacco): has quit using tobacco Year quit tobacco: 2010 Former quit date comment: PPD since age 14 Second hand smoke exposure: No Alcohol intake: current Alcohol intake frequency: 0-2 Drinks per Day Lives independently: Yes Household members: none Marital status: / Current occupational status: retired History of recent travel: No Current gender identity: Female Physical Exam Const: COMMON NORMALS: no acute distress, average body habitus, patient oriented x3 and alert NUTRITIONAL APPEARANCE: thin ORIENTATION/CONSCIOUSNESS: Yes oriented to person, Yes oriented to place and Yes oriented to time HENMT: COMMON NORMALS: normocephalic and atraumatic HEAD & SCALP: normal to inspection, normocephalic and atraumatic FACE & SINUS: normal facial exam GENERAL EAR: hearing grossly impaired Laterality: bilateral Eye: COMMON NORMALS: Equal, round and reactive pupils present, EOMs intact bilaterally and conjunctivae normal CONJUNCTIVA: Yes conjunctivae normal PUPIL: Yes Equal, round and reactive pupils present Neck/C-Spine: COMMON NORMALS: full ROM, no meningeal signs and no JVD GENERAL: Yes normal visual inspection CERVICAL SPINE: Yes cervical ROM normal Lymph: LYMPHATIC: no lymphadenopathy noted Resp: COMMON NORMALS: normal respiratory effort, No retractions and No use of accessory muscles EFFORT & INSPECTION: Yes able to speak in complete sentences and Yes symmetric chest movement AUSCULTATION: bronchovesicular breath sounds diffuse Cardio: COMMON NORMALS: no JVD, regular rate, regular rhythm, S1 normal heart sound present and S2 normal heart sound present RATE: regular rate RHYTHM: regular rhythm HEART SOUNDS: S1 normal heart sound present and S2 normal heart sound present GI: COMMON NORMALS: Normal to inspection, nondistended, normoactive bowel sounds present and Soft to palpation PALPATION: Yes Soft to palpation and Yes Tenderness to palpation present (GI) (Epigastric) Extremity: COMMON NORMALS: normal to inspection, full ROM and capillary refill normal Neuro: COMMON NORMALS: patient oriented x3, moves all extremities, no focal motor deficits and no sensory deficits noted SENSORIUM/ORIENTATION: Yes alert, Yes oriented to person, Yes oriented to place and Yes oriented to time MENINGEAL SIGNS: Yes no meningeal signs CRANIAL NERVES: Yes CN normal except as noted Psych: COMMON NORMALS: mental status grossly normal Skin: COMMON NORMALS: no rashes or lesions noted, no wounds, turgor normal, no jaundice, no petechiae and no mottling GENERAL SKIN EXAM: no rashes or lesions noted and turgor normal Course ED course: Plan to reevaluate LFTs, acetaminophen level, obtain ultrasound abdominal series. Daughter present at bedside discussed in great detail that Tylenol should be avoided until follow-up with primary care provider, and resolution of elevated liver enzymes. Reevaluation(s): Reevaluation #1: Reports resolution of epigastric pain, overall feeling well. Plan for close follow-up with PCP next week repeat liver enzymes Friday, with appointment next available for reevaluation. Discussed in detail with patient to avoid taking her aspirin, and her acetaminophen. Upon resolution of elevated LFTs and release from PCP medications can be reassessed. Time: 10:33 Vital Signs: Vital signs: Vital Signs Temperature 98.4 F 03/31/21 08:41 Pulse Rate 100 03/31/21 08:41 Respiratory Rate 24 H 03/31/21 08:41 Blood Pressure 137/69 03/31/21 08:41 Pulse Oximetry 97 03/31/21 08:41 MDM - Abdominal Pain Medical Records: Attestation: I reviewed the patient's medical records. Lab Data: Attestation: I reviewed the patient's lab results. Lab results narrative: As compared to previous liver enzymes including AST and ALT, total bilirubin have improved. It has been 24 hours since patient has consumed Tylenol. Acetaminophen level less than 5 at this time. Labs: Lab Results 03/31/21 03/31/21 03/31/21 09:04 09:04 09:04 WBC 5.9 10^3/uL 10^3/ uL (4.0-10.0) RBC 4.67 10^6/uL 10^6 /uL (4.1-5.3) Hgb 12.4 g/dL g/dL (11.5-15.3) Hct 40.1 % % (37.0-47.0) MCV 85.9 fl fl (81-99) MCH 26.6 pg L pg (28.0-34.0) MCHC 30.9 g/dL g/dL (30.0-36.0) RDW 15.9 % H % (12.1-15.1) Plt Count 224 10^3/cmm 10^3 /cmm (130-400) MPV 9.6 fL fL (7.4-10.4) Neut % (Auto) 80.6 % % Lymph % (Auto) 10.4 % % Murray % (Auto) 6.1 % % Eos % (Auto) 1.9 % % Baso % (Auto) 0.5 % % Neut # (Auto) 4.74 10^3/uL 10^3 /uL (1.8-7.7) Lymph # (Auto) 0.6 10^3/uL L 10^ 3/uL (0.8-4.8) Murray # (Auto) 0.4 10^3/uL 10^3/ uL (0.2-0.9) Eos # (Auto) 0.1 10^3/uL 10^3/ uL (0.0-0.8) Baso # (Auto) 0.0 10^3/uL 10^3/ uL (0.0-0.1) Nucleated RBC % (a uto) 0 % % Nucleated RBCs # 0.0 /100WBC /100W BC PT 12.60 SECONDS SEC ONDS (12.1-14.9) INR 0.92 (0.8-1.2) Sodium 136 mmol/L mmol/L (136-145) Potassium 4.2 mmol/L mmol/L (3.5-5.1) Chloride 98 mmol/L mmol/L (98-107) Carbon Dioxide 26 mmol/L mmol/L (22-29) Anion Gap 16.2 (5-19) BUN 8 mg/dL mg/dL (8-23) Creatinine 0.5 mg/dL mg/dL (0.5-0.9) GFR Calculation Not Reportable Glucose 95 mg/dL mg/dL (65-115) Calculated Osmolal ity 280 mOsm/kg L mOs m/kg (285-295) Calcium 8.8 mg/dL mg/dL (8.5-10.5) Total Bilirubin 3.0 mg/dL H mg/dL (0.15-1.2) AST 169 U/L H U/L (0-32) ALT 221 U/L H U/L (0-33) Alkaline Phosphata se 972 IU/L H IU/L (35-105) Total Protein 6.6 g/dL g/dL (6.6-8.7) Albumin 3.9 g/dL g/dL (3.5-5.2) Globulin 2.7 g/dL g/dL (1.3-4.6) Lipase 112 U/L H U/L (13-60) Acetaminophen < 5.0 ug/mL L ug/ mL (10-30) Imaging Data ^: US: Radiologist's impression: [id number] [id number] ReportSigned Patient: Sangeeta Graham #: [id number]: 1945cct#:[id number]/Sex: 76 / FADM Date: 03/31/21Loc: ERRoom/Bed:Attending Dr: Ordering Provider/Ordering MD: Alayna Sneed Date of Service: 03/31/21 Procedure(s): US abdomen complete* [id number] Accession Number(s): [id number] Report Number: [id number] PROCEDURE INFORMATION: Exam: US Abdomen Complete Exam date and time: 03/31/2021 8:46 AM Age: 76 years old Clinical indication: Abnormal findings; Abnormal lab test; Elevated liver enzymes; Prior surgery; Surgery date: 6+ months; Surgery type: Cholecystectomy; Additional info: Elevated lft, jaundice TECHNIQUE: Imaging protocol: Real-time ultrasound of the abdomen with image documentation. Total images: 52 COMPARISON: CT angio chest PE protcl [id number] 03/19/2021 3:28 PM FINDINGS: Liver: The liver is normal in echogenicity and configuration. No masses are detected. There is no intrahepatic biliary dilatation. Gallbladder: Prior cholecystectomy noted. Common bile duct: Common bile duct diameter is 2 mm. Pancreas: The pancreas is partially visualized due to overlying bowel gas. No gross pathology is detected. Right kidney: 9.5 cm length of right kidney. Right kidney with normal echogenicity and no hydronephrosis, calculi, solid masses, nor perinephric fluid collection. Normal arborization of the vasculature of the right kidney by color Doppler. Left kidney: 8.5 cm length of left kidney. Left kidney with normal echogenicity and no hydronephrosis, calculi, solid masses, nor perinephric fluid collection. Spleen: 10.8 cm Splenic length. The spleen has a normal echogenicity and configuration. No masses are detected. Aorta: Infrarenal abdominal aortic aneurysm measured at 3.4 cm. Inferior vena cava: IVC unremarkable. Portal venous: Spectral sonography demonstrates patent portal vein with hepatopedal blood flow. Normal respiratory phasicity on spectral waveform, indicating preserved compliance of the liver. No portal venous abnormality identified. Other findings: Study limited due to bowel gas. US/US abdomen complete* [id number] IMPRESSION: 1. Infrarenal abdominal aortic aneurysm measured at 3.4 cm. Follow-up imaging in 3 years is recommended. 2. No acute process identified. Dictated By:Yfn Gordilloigned By:Yfn Gordillo Date/Time:03/31/21 1010 Discharge Plan Discharge Patient Disposition: Home Clinical Impression: Patient's other noncompliance with medication regimen, Abdominal pain, epigast adri, Elevated liver enzymes, Aneurysm of infrarenal abdominal aorta Condition: Stable Prescriptions: Held aspirin 325 mg Tablet 325 mg PO Q6H PRN (Reason: Headache) RF: 0 Hold Instructions: Until resolution of elevated LFT/or told to resume by PCP No Action budesonide 0.25 mg/2 mL suspension for nebulization 2 ml INHALATION BID RF: 0 magnesium oxide 400 mg magnesium capsule 400 mg PO QAM RF: 0 hydrochlorothiazide 12.5 mg tablet 12.5 mg PO DAILY RF: 0 levofloxacin 500 mg tablet 500 mg PO DAILY RF: 0 atorvastatin 20 mg tablet 20 mg PO QAM Qty: 90 RF: 1 ondansetron HCl [Zofran] 4 mg tablet 4 mg PO Q8H PRN (Reason: nausea and vomiting) Qty: 30 RF: 1 valacyclovir 1 gram tablet 2,000 mg PO BID 1 Days Qty: 4 RF: 2 losartan 50 mg tablet 50 mg PO QAM Qty: 90 RF: 1 Combivent Respimat 20-100 mcg/actuation mist 1 puff INHALATION QID Qty: 4 RF: 5 fluticasone propionate 50 mcg/actuation spray,suspension 2 spray INTRANASAL DAILY PRN (Reason: Allergy Symptoms) Qty: 16 RF: 5 (DME) Nebulizer machine See Rx Instructions .Route .MEDSUPPLY Qty: 1 RF: 0 cilostazol 100 mg tablet 100 mg PO BID 180 Days Qty: 360 RF: 1 Zoloft 100 mg tablet 50 mg PO QAM RF: 0 montelukast 10 mg tablet 10 mg PO BEDTIME RF: 0 Mucinex 600 mg tablet extended release 12hr 600 mg PO Q12H PRN (Reason: Congestion) RF: 0 Discharge Orders: Discharge ED (Routine); Ordered 03/31/21 Ordered By: Alayna Sneed Referrals: Deloris Pat FNP [Primary Care Provider] - 1-3 days (Follow up Liver Function Test Friday, and appointment with PCP next week. Incidental finding of Infrarenal Abdominal Aortic Aneurysm-suggest follow up imaging in 3 years. ) Discharge Diet: Usual diet Discharge Activity: Resume usual activity Patient Instructions: Acetaminophen Overdose (ED), Abdominal Pain (ED), Opioid Safety Activity Restrictions/Additional Instructions: As discussed taking the Tylenol 500mg Tablets often throughout the day can easily accumulate to toxic levels. Do not consume more than 4000 mg or 8 of the 500mg tablets in a 24 hour period of time. The use of Aspirin for pain control with Tylenol can cause your liver enzymes to be elevated. Avoid ALL TYLENOL, & ASPIRIN until you follow up with your primary care provider. Coding Level of Care Code ED Bowling [employer] Manager for Nitish Nelson Exam Comprehensive
[2021-03-31 09:15] LABS: Basophils % 0.5 %; Eosinophils # 0.1 10^3/uL (0.0-0.8); Eosinophils % 1.9 %; Hematocrit 40.1 % (37.0-47.0); Hemoglobin 12.4 g/dL (11.5-15.3); Lymphocytes # 0.6 10^3/uL (0.8-4.8); Lymphocytes % 10.4 %; Mean Corpuscular HGB Conc 30.9 g/dL (30.0-36.0); Mean Corpuscular Hemoglobin 26.6 pg (28.0-34.0); Mean Corpuscular Volume 85.9 fl (81-99); Mean Platelet Volume 9.6 fL (7.4-10.4); Monocytes # 0.4 10^3/uL (0.2-0.9); Monocytes % 6.1 %; Neutrophils # 4.74 10^3/uL (1.8-7.7); Neutrophils % 80.6 %; Nucleated Red Blood Cells % 0 %; Platelet Count 224 10^3/cmm (130-400); Red Blood Count 4.67 10^6/uL (4.1-5.3); Red Cell Distribution Width 15.9 % (12.1-15.1); White Blood Count 5.9 10^3/uL (4.0-10.0)
[2021-03-31 09:29] LABS: INR 0.92 (0.8-1.2)
[2021-03-31 09:35] LABS: Alanine Aminotransferase 221 U/L (0-33); Albumin Level 3.9 g/dL (3.5-5.2); Alkaline Phosphatase 972 IU/L (35-105); Anion Gap 16.2 (5-19); Aspartate Amino Transferase 169 U/L (0-32); Blood Urea Nitrogen 8 mg/dL (8-23); Calcium 8.8 mg/dL (8.5-10.5); Carbon Dioxide 26 mmol/L (22-29); Chloride 98 mmol/L (98-107); Globulin 2.7 g/dL (1.3-4.6); Glucose 95 mg/dL (65-115); Lipase 112 U/L (13-60); Osmolality Calculated 280 mOsm/kg (285-295); Potassium 4.2 mmol/L (3.5-5.1); Sodium 136 mmol/L (136-145); Total Protein 6.6 g/dL (6.6-8.7)
[2021-03-31 09:47] LABS: Acetaminophen < 5.0 ug/mL (10-30)
[2021-03-31 11:25] VITALS: BP 134/71; PULSE 94; RESP 18; O2SAT 98
== END 2021-03-31 11:28 | disposition home or self-care (01) ==
PROVIDERS: Emergency Provider Nurse Practitioner Family; PCP Nurse Practitioner Family
DX: R10.13 Epigastric pain (principal); I71.4 Abdominal aortic aneurysm, without rupture; R74.8 Abnormal levels of other serum enzymes; Z91.14 Patient's other noncompliance with medication regimen; I10 Essential (primary) hypertension; Z99.81 Dependence on supplemental oxygen; Z87.891 Personal history of nicotine dependence
CPT/HCPCS: 76700; 80053; 80307; 83690; 85025; 85610; 99283

== ENCOUNTER → 2021-04-03 10:52 | Outpatient (BNVA) | payer MEDICARE, OTHER, SELFPAY | PROVIDERS: PCP Nurse Practitioner Family; Visit Provider Nurse Practitioner Family | DX: R74.8 Abnormal levels of other serum enzymes (principal); R79.89 Other specified abnormal findings of blood chemistry; J18.9 Pneumonia, unspecified organism; Z68.1 Body mass index [BMI] 19.9 or less, adult; Z71.89 Other specified counseling; R94.6 Abnormal results of thyroid function studies | CPT/HCPCS: 80048; 80076; 82150; 82977; 83690; 83915; 84439; 84443; 85025 ==

== ENCOUNTER → 2021-04-11 11:38 | Outpatient (BNVA) | payer MEDICARE, OTHER, SELFPAY | PROVIDERS: PCP Nurse Practitioner Family; Visit Provider Nurse Practitioner Family | DX: R74.8 Abnormal levels of other serum enzymes (principal) | CPT/HCPCS: 80048; 80076; 82310; 83970 ==

== ENCOUNTER → 2021-04-26 10:22 | Outpatient (BNVA) | payer MEDICARE, OTHER, SELFPAY | PROVIDERS: PCP Nurse Practitioner Family; Visit Provider Nurse Practitioner Family | DX: R79.89 Other specified abnormal findings of blood chemistry (principal) | CPT/HCPCS: 80053 ==